=== PATIENT | male | born 1965 | race Caucasian/White ===

== ENCOUNTER 2017-01-30 10:30 | Day surgery (SDC) | payer OTHER ==
[2017-01-28 14:24] LABS: ANION GAP 13 mEq/L (8-16); CARBON DIOXIDE 25 mEq/l (22-31); CHLORIDE 103 mEq/L (97-110); CREATININE 0.8 mg/dL (0.7-1.3); GLOMERULAR FILTRATION RATE > 60; GLUCOSE 88 mg/dL (70-100); POTASSIUM 4.7 mEq/L (3.5-5.2); SODIUM 141 mEq/L (134-144)
[2017-01-30] MEDS ORDERED: LR 1,000 ML IV ONE (11:36)
--- NOTE | 2017-01-30 12:25 | PDGENHP ---
History & Physical Chief Complaint: cc screen History of Present Illness: screening Pertinent Past, Social, Family History: no tobacco, one wine at night Relevant Physical Exam: a+ox3, cta, s1s2, rrr, +BS, soft nt Cardiorespiratory Assessment: class 2
[2017-01-30] MEDS ORDERED: PROPOFOL 200 MG/20 ML VIAL ONE (12:26)
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
[2017-01-30] MEDS ORDERED: NALOXONE HCL 0.4 MG/ML INJ IVP PRN (12:48)
[2017-01-30] MEDS ORDERED: LR 500 ML IV PRN (12:48)
[2017-01-30] MEDS ORDERED: fentaNYL 100 MCG/2 ML INJ IVP PRN (12:48)
[2017-01-30] MEDS ORDERED: DEXAMETHASONE 4 MG/ML VIAL IVP PRN (12:48)
[2017-01-30] MEDS ORDERED: ALBUTEROL 3 ML DEYVIAL IH PRN (12:48)
--- NOTE | 2017-01-30 12:58 | POSTOPPROG ---
Post Op Note Date of Operation: 01/30/17 Surgeon: Wyatt Spaulding Anesthesiologist: Jason Anesthesia: Other (Specify) (IV general) Pre-op Diagnosis: screening Post-op Diagnosis: polyp tc snared, small polyps rectum removed with bx Indication: screening Procedure: colonosocopy with snare and cold bx Findings: 11 mm polyp in transverse=snared, two 2-3 mm rectal polyps removed with bx Inf/Abcess present in the surg proc area at time of surgery?: No EBL: Minimal (few ml) Total fluids administered: 200 ml LR Complications: none immediate
--- NOTE | 2017-01-30 13:03 | POSTANESTH ---
Post Anesthetic Evaluation Cardiovascular Status: Normal, Stable Respiratory Status: Normal, Stable Level of Consciousness/Mental Status: Can Participate in Eval Pain Control: Adequate, Prn Tx Ordered Nausea/Vomiting Control: Adequate, Prn Tx Ordered Complications Possibly Related to Anesthesia: None Noted
--- NOTE | 2017-01-30 13:42 | GPN ---
[f rep st] PROCEDURE NOTE DATE OF PROCEDURE: 01/30/2017 PROCEDURE PERFORMED: Colonoscopy with snare and biopsy polypectomy. INDICATION: Routine screening in a 51-year-old male. PREOPERATIVE DIAGNOSIS: Rule out polyps. POSTOPERATIVE DIAGNOSES: 1. 11 mm semi-sessile polyp in the midtransverse colon, removed in total by cold snare. 2. Two 2-3 mm rectal polyps, removed in total by cold biopsy. 3. Left-sided diverticulosis. INFORMED CONSENT: I had a detailed discussion with the patient regarding the procedure, alternatives , benefits, and risks, including bleeding, perforation, infection, and risk of medication. Informed consent was signed and witnessed. COMPLICATIONS: None immediate. MEDICATIONS USED: IV general as per Dr. Mendez. DESCRIPTION OF PROCEDURE: After the patient was placed in the left lateral decubitus position and ad equate IV general sedation, I performed a visual and digital anorectal examination. The video colono scope was then inserted via the rectum and advanced under visualization to the terminal ilium. Ident ified the ileocecal valve, appendiceal orifice, and confluence of tinea. Upon withdrawing the instru ment, careful attention was paid to the mucosal detail. The prep was very good. There was an 11 mm semi-sessile polyp in the transverse colon that was removed in total by cold snare. I also noted two 2-3 mm polyps in the rectum and the rectosigmoid area. These were both removed with cold biopsy. T he patient did have diverticulosis noted in the sigmoid, descending, and distal transverse colon. Re troflexed examination of the rectum was performed. The endoscope was un-retroflexed, advanced back t o the transverse colon, and the air was removed. The endoscope was then completely withdrawn, confir daija the above findings. The patient tolerated the procedure well and was transferred to recovery in satisfactory condition. IMPRESSION: 1. 11 mm transverse colon polyp, removed in total by cold snare. 2. Two 2-3 mm rectal polyps, removed in total by cold biopsy. 3. Left-sided diverticulosis. RECOMMENDATIONS: 1. Follow up pathology of polyps. 2. Repeat colonoscopy in 3 years if the polyp in the transverse colon is precancerous, which I expec t it will be. 3. High-fiber, high-fluid diet. There is no need to avoid seeds or nuts with the diverticulosis. 4. Except as used for cardiac or stroke prevention, try to avoid aspirin and nonsteroidal anti-infla mmatory drugs for the next 7-10 days. 5. Follow up with primary care physician as scheduled. 6. If this polyp does steel turner to be a precancerous polyp, the patient's first-degree relatives belia adam all have colonoscopies at age 40, which is 10 years younger than he is now. Our national guidelin es say if it is an advanced adenoma, either with villous architecture or a polyp size greater than 1 cm, this confers an increase risk in first-degree relatives. Thank you for allowing me to participate in this patient's health care. Do not hesitate to call me w raya questions. /[id number]/MODL
[2017-01-30 14:02] VITALS: TEMP 98.6
[2017-01-30 14:15] VITALS: BP 111/78; O2SAT 92
[2017-01-30 14:28] VITALS: PULSE 61; RESP 17
== END 2017-01-30 14:27 | disposition home or self-care (01) ==
LOC: FSGY 10:30
PROVIDERS: ATTEND Internal Medicine Gastroenterology
PROC: 0DBL8ZX Excision of Transverse Colon, Via Natural or Artificial Opening Endoscopic, Diagnostic (ICD-10-PCS; principal; 2017-01-30 12:00)
PROC: 0DBP8ZX Excision of Rectum, Via Natural or Artificial Opening Endoscopic, Diagnostic (ICD-10-PCS; principal; 2017-01-30 12:00)
DX: Z12.11 Encounter for screening for malignant neoplasm of colon (principal); D12.3 Benign neoplasm of transverse colon; D12.8 Benign neoplasm of rectum; K57.30 Diverticulosis of large intestine without perforation or abscess without bleeding; E78.5 Hyperlipidemia, unspecified; G47.33 Obstructive sleep apnea (adult) (pediatric); K21.9 Gastro-esophageal reflux disease without esophagitis; Z87.820 Personal history of traumatic brain injury
CPT/HCPCS: J2704